=== PATIENT | male | born 1990 | race Caucasian/White ===

== ENCOUNTER 2019-04-27 04:49 | Emergency (ER) | payer SELFPAY ==
--- NOTE | 2019-04-27 05:16 | EDM.PDOC ---
ED HPI GENERAL MEDICAL PROBLEM - General Chief Complaint: Chest Pain Stated Complaint: RIGHT SIDE CHEST PAIN THAT GOES INTO BACK Time Seen by Provider: 04/27/19 05:07 Source of Information: Reports: Patient History Limitations: Reports: No Limitations - History of Present Illness INITIAL COMMENTS - FREE TEXT/NARRATIVE: 20-year-old male attends ED with severe right anterior chest pain just below his right breast that radiates through to his back under his right scapula. 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 Every time he breathes deeply gets very sharp stabbing pleuritic chest pain. Is otherwise well with no fever chills nausea or vomiting. He smokes cigarettes intermittently usually with drinking. Denies cough or sputum production. O2 sats are 100% on room air. He is aware that he's had discomfort in his right upper back for the last 2 days. He is unable to sleep on the right side at all due to exacerbation of the pain. No history of DVT or PE in the past. Does have a history of hypertension and is on lisinopril 10 mg daily. Onset: Gradual Onset Date: 04/25/19 Duration: Hour(s): (Start about 40 hours ago.), Getting Worse Location: Reports: Chest (Right anterior chest pain that seems to radiate through to his back under his shoulder blade) Quality: Reports: Ache ( right side), Sharp, Stabbing Severity: Severe (Anus is very sharp and stabbing and pleuritic i.e. made worse with deep breathing.) Improves with: Reports: Rest Worsens with: Reports: Breathing, Other, Movement ( circumflex) Context: Reports: Other. Denies: Activity ( mental make the pain much worse as well. ), Exercise, Lifting, Sick Contact, Trauma Associated Symptoms: Reports: Chest Pain, Shortness of Breath (Can't take a full deep breath as it makes the pain worse.). 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 (see below) (He has taken no medications.) Right Chest Pain Score (Numeric/FACES): 4 - Related Data Allergies Allergy/AdvReac Type Severity Reaction Status Date / Time succinylcholine Allergy Cannot Verified 04/27/19 04:59 Remember Home Meds: Home Meds Diazepam [Valium] 5 mg PO BID PRN 04/27/19 [History] Lisinopril [Zestril] 10 mg PO DAILY 04/27/19 [History] Past Medical History Cardiovascular History: Reports: Hypertension Psychiatric History: Reports: Anxiety - Past Surgical History HEENT Surgical History: Reports: Oral Surgery Social & Family History - Family History Family Medical History: Noncontributory - Tobacco Use Smoking Status *Q: Current Some Day Smoker Years of Tobacco use: 15 Packs/Tins Daily: 0.2 - Caffeine Use Caffeine Use: Reports: Coffee - Recreational Drug Use Recreational Drug Use: No - Living Situation & Occupation Occupation: Employed ED ROS GENERAL - Review of Systems Review Of Systems: See Below Constitutional: Denies: Fever, Chills, Malaise, Weakness, Fatigue, Decreased Appetite, Weight Loss HEENT: Reports: No Symptoms Respiratory: Reports: Shortness of Breath, Pleuritic Chest Pain. Denies: Wheezing, Cough, Sputum Cardiovascular: Reports: Chest Pain (Right anterior chest pain radiate through to his back under his right shoulder blade.), Blood Pressure Problem. Denies: Claudication, Edema, Lightheadedness, Orthopnea (Chronic hypertension and is on lisinopril 10 mg daily) Endocrine: Reports: No Symptoms GI/Abdominal: Reports: No Symptoms : Reports: No Symptoms Musculoskeletal: Reports: Back Pain Skin: Reports: No Symptoms (Right upper back pain at present associate with the right anterior chest pain) Neurological: Reports: No Symptoms Psychiatric: Reports: Anxiety Hematologic/Lymphatic: Reports: No Symptoms ED EXAM, GENERAL - Physical Exam Exam: See Below Exam Limited By: No Limitations General Appearance: Alert, WD/WN, Moderate Distress, Other (She is getting frequent stabbing chest pains in the right side about 1 every 10 seconds.) Eye Exam: Bilateral Eye: Normal Inspection (No scleral icterus.) Neck: Normal Inspection, Supple, Non-Tender, Full Range of Motion. No: Lymphadenopathy (L), Lymphadenopathy (R) Respiratory/Chest: No Accessory Muscle Use, Respiratory Distress, Splinting, Other Cardiovascular: Normal Peripheral Pulses (No anterior wall chest tenderness.), Regular Rate, Rhythm, No Edema, No Gallop, No Murmur, No Rub Peripheral Pulses: 3+: Carotid (L), Carotid (R), Posterior Tibial (L), Posterior Tibial (R), Dorsalis Pedis (L), Dorsalis Pedis (R) GI/Abdominal: Normal Bowel Sounds, Soft, Non-Tender, No Organomegaly, No Distention Back Exam: Paraspinal Tenderness (Right-sided paraspinal muscle spasm), Other ( Emanation of his back reveals mild right hip rib head subluxation on the left side at thoracic 8 or 9 level. There is paraspinal muscle spasm on the right side from lumbar 1 to thoracic 3. And a maximal tenderness appears to be over the thoracic 6 and 7 rib heads.). No: Decreased Range of Motion, Vertebral Tenderness Extremities: Normal Inspection, Normal Range of Motion, Non-Tender, No Pedal Edema Neurological: Alert, Oriented, CN II-XII Intact, Normal Cognition, Normal Gait, No Motor/Sensory Deficits Psychiatric: Anxious, Other Skin Exam: Warm, Dry, Intact (In a good deal of discomfort.), Normal Color, No Rash Course - Vital Signs Last Recorded V/S: Last Vital Signs Temp 36.7 C 04/27/19 04:56 Pulse 74 04/27/19 04:56 Resp 19 04/27/19 04:56 BP 142/82 H 04/27/19 04:56 Pulse Ox 100 04/27/19 04:56 - Orders/Labs/Meds Orders: Active Orders 24 hr Category Date Time Status Chest 1V Frontal [CR] Stat Exams 04/27/19 05:16 Taken Meds: Medications Discontinued Medications Generic Name Dose Route Start Last Admin Trade Name Cheli PRN Reason Stop Dose Admin Dexamethasone 12 mg 04/27/19 05:38 04/27/19 05:45 Dexamethasone PO 04/27/19 05:39 12 mg ONETIME ONE Administration Ibuprofen 800 mg 04/27/19 05:17 04/27/19 05:20 Motrin PO 04/27/19 05:18 800 mg ONETIME ONE Administration - Radiology Interpretation Free Text/Narrative:: 28-year-old male presents to the ED for evaluation of severe right anterior chest pain just below his right breast rating through to his back under her shoulder blade. He states it started gradually over the last 40 hours. 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 No definitive injuries. Rt hand dominant. - Re-Assessments/Exams Free Text/Narrative Re-Assessment/Exam: 04/27/19 05:43 1 view portable chest x-ray is completed. It reveals normal lung rainey and normal cardiac silhouette and all ribs appear to be intact without any lytic lesions. No pneumothorax and no lung infiltrates. It appears to be coming from rib head subluxation in his right upper back with overlying mild paraspinal muscle spasm. Point of maximal tenderness appears to be over T6 and T7 rib head. I believe patient would benefit from chiropractic manipulation and I will send [facility] to [facility] as they see walk-ins from 5-7 this morning. He has received Motrin is 800 mg in the ED and methadone 12 mg by mouth to reduce any inflammation. Departure - Departure Time of Disposition: 05:45 Disposition: Home, Self-Care 01 Reason for Transfer *Q: Other Condition: Fair Clinical Impression: Acute chest wall pain, Acute thoracic back pain Instructions: Chest Wall Pain, [id number] Referrals: PCP,Not In Area [Primary Care Provider] - Forms: ED Department Discharge, ED Return to Work/School Form Additional Instructions: Evaluation the emergency room this morning in regards to development of right upper back pain that is gradually worsened over the last day or 2. Associated development of right anterior chest pain with strong sharp pleuritic type pain in the right chest. No significant localized pain to the right anterior chest wall which is felt underneath her right breast. Associated paraspinal muscle spasm on the right upper back with suspect rib head subluxation at number thoracic 6 and 7. X-ray done portably does not reveal any problems with the ribs ,underlying lung or heart. Suggest chiropractic manipulation and I would refer you to [facility] , Bes[facility] on [address] See walking patients from 5-7. You were given Motrin 800 mg in the ED and dexamethasone 12 mg in the ED to relieve pain and inflammation. May well require Motrin 600 mg every 6 hours to further relieve pain and inflammation. Usually after chiropractic. Ablation it takes a day and a half or so for the rib head pain to settle down completely. Trying to take it easy at work if possible today and tomorrow. Sepsis Event Note - Evaluation Sepsis Screening Result: No Definite Risk - Focused Exam Vital Signs: Vital Signs Temp Pulse Resp BP Pulse Ox 02/14/20 04:56 36.7 C 74 19 142/82 H 100 Date Exam was Performed: 04/27/19 Time Exam was Performed: 05:51 - My Orders Last 24 Hours: My Active Orders 04/27/19 05:16 Chest 1V Frontal [CR] Stat - Assessment/Plan Last 24 Hours: My Active Orders 04/27/19 05:16 Chest 1V Frontal [CR] Stat
[2019-04-27] MEDS ORDERED: Ibuprofen 800 MG Tab PO ONE (05:17)
[2019-04-27] MEDS ORDERED: Dexamethasone 4 MG Tab PO ONE (05:38)
--- NOTE | 2019-04-27 08:13 | CR ---
Chest: Portable view of the chest was obtained. Comparison: No prior chest x-ray. Heart size and mediastinum are normal. Lungs are clear. Bony structures are unremarkable. Impression: 1. Nothing acute is appreciated on portable chest x-ray. Diagnostic code #1 This report was dictated in [place] Standard Time
== END 2019-04-27 05:54 | disposition home or self-care (01) ==
LOC: JD.ED 04:49
DX: M54.6 Pain in thoracic spine (principal); R07.89 Other chest pain; I10 Essential (primary) hypertension; F41.9 Anxiety disorder, unspecified; F17.210 Nicotine dependence, cigarettes, uncomplicated; Z79.899 Other long term (current) drug therapy; Z88.8 Allergy status to other drugs, medicaments and biological substances
CPT/HCPCS: 71045; 99285; A9270; J8540; 99284